=== PATIENT | male | born 1950 | race Caucasian/White ===

== ENCOUNTER 2020-09-16 01:05 | Observation (INO) | payer MEDICARE ==
[2020-09-16] VITALS (8 sets, daily range): BP systolic 152–209; BP diastolic 73–94
[~2020-09-16] VITALS: Ht 188 cm; Wt 91.5 kg
[2020-09-16 13:18] LABS: BASOPHILS % (AUTO) 0.2 % (0.0-5.0); EOSINOPHILS % (AUTO) 1.1 % (0.0-8.0); HEMATOCRIT 30.2 % (42-54); LYMPHOCYTES % (AUTO) 27.3 % (21.0-51.0); MEAN CORPUSCULAR HEMOGLOBIN 31.3 pg (27.0-33.0); MEAN CORPUSCULAR HGB CONC 34.1 g/dL (32.0-36.0); MEAN CORPUSCULAR VOLUME 91.8 fL (79-99); MONOCYTES % (AUTO) 6.5 % (3.0-13.0); NEUTROPHILS % (AUTO) 64.8 % (40.0-77.0); PLATELET COUNT (AUTO) 213 K/uL (130-400); RED BLOOD CELL COUNT(AUTO) 3.29 MIL/uL (4.50-6.20); RED CELL DISTRIBUTION WIDTH 16.6 % (11.0-15.5); WHITE BLOOD COUNT (AUTO) 9.4 K/uL (4.8-10.8)
[2020-09-16 13:36] LABS: HEMOGLOBIN A1C 6.4 % (4.0-6.0)
[2020-09-16 13:43] LABS: MAGNESIUM 1.9 mg/dL (1.80-2.40); POTASSIUM 3.6 mmol/L (3.5-5.1); THYROID STIMULATING HORMONE 0.49 uIU/mL (0.36-3.74)
[2020-09-16] MEDS ORDERED: AMLODIPINE BESYLATE 5 MG TAB PO SCH (19:45)
[2020-09-16] MEDS: DIVALPROEX SODIUM 250 MG TABLET.DR PO SCH (20:41)
[2020-09-16] MEDS ORDERED: TEMAZEPAM 7.5 MG CAPSULE PO ONE (21:15)
[2020-09-17] VITALS: BP 207/99
[2020-09-17 01:10] VITALS: BP 143/82
[2020-09-17 04:00] VITALS: BP 199/97
[2020-09-17] MEDS ORDERED: HYDRALAZINE HCL 20 MG/ML VIAL IV PRN (06:00)
[2020-09-17 06:52] LABS: BASOPHILS % (AUTO) 0.2 % (0.0-5.0); EOSINOPHILS % (AUTO) 1.1 % (0.0-8.0); HEMATOCRIT 35.4 % (42-54); LYMPHOCYTES % (AUTO) 26.6 % (21.0-51.0); MEAN CORPUSCULAR HEMOGLOBIN 30.2 pg (27.0-33.0); MEAN CORPUSCULAR HGB CONC 32.2 g/dL (32.0-36.0); MEAN CORPUSCULAR VOLUME 93.9 fL (79-99); MONOCYTES % (AUTO) 7.4 % (3.0-13.0); NEUTROPHILS % (AUTO) 64.4 % (40.0-77.0); PLATELET COUNT (AUTO) 273 K/uL (130-400); RED BLOOD CELL COUNT(AUTO) 3.77 MIL/uL (4.50-6.20); RED CELL DISTRIBUTION WIDTH 16.6 % (11.0-15.5); WHITE BLOOD COUNT (AUTO) 12.6 K/uL (4.8-10.8)
[2020-09-17 07:01] LABS: CREATININE 1.1 mg/dL (0.5-1.5); POTASSIUM 3.4 mmol/L (3.5-5.1)
[2020-09-17 07:50] VITALS: BP 164/106
[2020-09-17] MEDS ORDERED: FLUOXETINE HCL 20 MG CAPSULE PO SCH (09:00)
[2020-09-17] MEDS ORDERED: ATORVASTATIN CALCIUM 20 MG TABLET PO SCH (09:00)
[2020-09-17] MEDS: DIVALPROEX SODIUM 250 MG TABLET.DR PO SCH (09:00)
[2020-09-17] MEDS ORDERED: AMLODIPINE BESYLATE 5 MG TAB PO SCH (09:00)
[2020-09-17] MEDS ORDERED: LOSARTAN 50 MG TABLET PO SCH (09:00)
[2020-09-17] MEDS ORDERED: ASPIRIN 81MG TAB.CHEW PO SCH (09:00)
[2020-09-17 11:40] VITALS: BP 152/104
[2020-09-17] MEDS ORDERED: POTASSIUM CHLORIDE 20 MEQ ERTAB PO SCH (14:00)
[2020-09-17 15:55] VITALS: BP 153/88
== END 2020-09-17 20:06 ==
LOC: 4AH 01:05 → INTOOBSV 01:05
PROVIDERS: ADMIT Hospitalist; ATTEND Hospitalist
DX: I49.8 Other specified cardiac arrhythmias (principal); G90.1 Familial dysautonomia [Riley-Day]; R55 Syncope and collapse; F03.90 Unspecified dementia, unspecified severity, without behavioral disturbance, psychotic disturbance, mood disturbance, and anxiety; I10 Essential (primary) hypertension; E11.9 Type 2 diabetes mellitus without complications; I69.351 Hemiplegia and hemiparesis following cerebral infarction affecting right dominant side; F31.9 Bipolar disorder, unspecified; E78.00 Pure hypercholesterolemia, unspecified; I25.10 Atherosclerotic heart disease of native coronary artery without angina pectoris; Z86.19 Personal history of other infectious and parasitic diseases; Z95.1 Presence of aortocoronary bypass graft; Z79.82 Long term (current) use of aspirin; Z79.899 Other long term (current) drug therapy
CPT/HCPCS: 36415 ×2; 80048 ×2; 82607; 82746; 82948 ×2; 83036; 83735; 84145; 84443; 85025 ×2; 86592; 93005; G0378 ×30; G0379